=== PATIENT | male | born 1990 | race African-American/Black ===

== ENCOUNTER 2016-09-10 09:44 | Emergency (ER) | payer MEDICAID ==
[~2016-09-10] VITALS: Ht 165.1 cm; Wt 82.0 kg
[2016-09-10 10:11] VITALS: BP 143/92
== END 2016-09-10 18:04 | disposition home or self-care (01) ==
LOC: ER 16:46
DX: R04.0 Epistaxis (principal)
CPT/HCPCS: 99281